=== PATIENT | male | born 1965 | race Caucasian/White ===

== ENCOUNTER 2017-02-04 07:21 | Day surgery (SDC) | payer OTHER ==
[~2017-02-04] VITALS: Ht 188 cm; Wt 86.1 kg
[~2017-02-04 07:21] MED LIST: CRANBERRY TABL1 EACH PO; FISH OIL 1,0001 EAC7 PO; MULTI VITAMIN1 EACH PO; SAW PALMETTO160 MG PO; VITAMIN D2000 UNI1 PO; VOLTAREN50 MG PO
[2017-02-04 07:55] VITALS: BP 130/83
[2017-02-04 11:55] VITALS: BP 136/80
[2017-02-04 12:29] VITALS: BP 138/70
== END 2017-02-04 12:34 | disposition home or self-care (01) ==
LOC: SDC 07:21
PROC: 01BG0ZZ Excision of Tibial Nerve, Open Approach (ICD-10-PCS; principal; 2017-02-04)
DX: G57.61 Lesion of plantar nerve, right lower limb (principal); M77.41 Metatarsalgia, right foot; M21.071 Valgus deformity, not elsewhere classified, right ankle; M21.072 Valgus deformity, not elsewhere classified, left ankle
CPT/HCPCS: 88305; J0690; J1100; J2250; J2405; J3010; S0020

== ENCOUNTER → 2017-06-20 | Outpatient (CLI) | payer OTHER ==
[~2017-06-20] VITALS: Ht 188 cm; Wt 83.9 kg
[~2017-06-20] MED LIST changes: +LIVER COMPLEX1 EACH PO; +VITAMIN C1000 MG PO
== END | disposition home or self-care (01) ==
LOC: AMB 06:57
DX: Z12.11 Encounter for screening for malignant neoplasm of colon (principal); D12.0 Benign neoplasm of cecum; D12.2 Benign neoplasm of ascending colon; Z86.010 Personal history of colon polyps; Z83.71 Family history of colonic polyps; K64.8 Other hemorrhoids; Z80.0 Family history of malignant neoplasm of digestive organs; Z88.2 Allergy status to sulfonamides
CPT/HCPCS: 88305; J2405